=== PATIENT | female | born 1990 | race Caucasian/White ===

== ENCOUNTER 2018-09-17 11:26 | Day surgery (SDC) | payer OTHER ==
[~2018-09-17] VITALS: Ht 160 cm; Wt 86.7 kg
[2018-09-17 12:10] VITALS: Ht 160 cm; Wt 86.7 kg
--- NOTE | 2018-09-17 12:19 | PREAC ---
Date/Time of Note Date/Time of Note DATE: 09/17/18 TIME: 12:18 Anesthesia Eval and Record Evaluation Time Pre-Procedure Interview DATE: 09/17/18 TIME: 12:18 Age 28 Sex female NPO: 8 hrs Preoperative diagnosis ABDOMINAL PAIN, GERD Planned procedure EGD Past Medical History Past Medical History: Includes Pulm: Asthma GI: GERD, Obesity Surgery & Anesthesia Issues No known issue Meds Anticoagulation: No Beta Francine within 24 hr: No Reason Beta Francine not given: Pt. not on B-Francine Meds reviewed: Yes Allergies Coded Allergies: cefazolin (Verified Allergy, Severe, ANAPHYLAXIS, 09/17/18) ciprofloxacin (Verified Allergy, Severe, ANAPHYLAXIS, 09/17/18) levofloxacin (Verified Allergy, Severe, ANAPHYLAXIS, 09/17/18) moxifloxacin (Verified Allergy, Severe, ANAPHYLAXIS, 09/17/18) Allergies Reviewed: Yes Labs/Studies Labs Reviewed: Reviewed by anesthesiologist test: Negative Pre-procedure Exam Airway: Adequate mouth opening, Adequate thyromental dist Mallampati: Mallampati II Teeth: Normal Lung: Normal Heart: Normal ASA Physical Status ASA physical status: 2 Emergency: None Planned Anesthetic General/MAC: MAC Planned Pain Management Parenteral pain med Pre-operative Attestations Prior to commencing anesthesia and surgery, the patient was re-evaluated, there was verification of: *The patient's identity *The results of appropriate recent lab work and preoperative vital signs *The above evaluation not changing prior to induction *Anesthetic plan, risk benefits, alternative and complications discussed with patient/family; questions answered; patient/family understands, accepts and wishes to proceed. PRITI VERAS Sep 17, 2018 12:19
[2018-09-17] MEDS ORDERED: LIDOCAINE 2% (SDV) 5 ML INJ ONE (12:21)
[2018-09-17] MEDS ORDERED: PROPOFOL 40 ML ONE (12:21)
[2018-09-17] MEDS ORDERED: hydrALAzine 20 MG INJ IV PRN (12:30)
[2018-09-17] MEDS ORDERED: EPHEDrine SULFATE 50 MG/5 ML SYG IV PRN (12:30)
[2018-09-17] MEDS ORDERED: METOCLOPRAMIDE 10 MG INJ IV PRN (12:30)
[2018-09-17] MEDS ORDERED: LABETALOL HCL 20MG INJ IV PRN (12:30)
[2018-09-17] MEDS ORDERED: ONDANSETRON 4 MG INJ IV PRN (12:30)
[2018-09-17] MEDS ORDERED: FENTAnyl 50 MCG/ML VIAL IV PRN (12:30)
[2018-09-17] MEDS ORDERED: ZYRTEC (12:35)
[2018-09-17] MEDS ORDERED: BIRTH CONTROL (12:35)
[2018-09-17] MEDS ORDERED: ARNUITY (12:35)
[2018-09-17] MEDS ORDERED: FISH OIL (12:35)
[2018-09-17] MEDS ORDERED: PROBIOTICS (12:35)
[2018-09-17 12:36] VITALS: BP 109/65; PULSE 88; RESP 16
--- NOTE | 2018-09-17 13:32 | PAC ---
Date/Time of Note Date/Time of Note DATE: 09/17/18 TIME: 13:32 Post-Anesthesia Notes Post-Anesthesia Note Last documented vital signs Vital Signs Date Temp Pulse Resp B/P (MAP) Pulse Ox O2 O2 Flow FiO2 Time Delivery Rate 09/17/18 98.0 88 16 109/65 99 Room Air 1332 (80) Activity: WNL Respiratory function: WNL Cardiovascular function: WNL Mental status: Baseline Pain reasonably controlled: Yes Hydration appropriate: Yes Nausea/Vomiting absent: Yes PRITI VERAS Sep 17, 2018 13:32
[2018-09-17 13:55] VITALS: BP 133/76; RESP 15
== END 2018-09-17 15:44 | disposition home or self-care (01) ==
LOC: GIL 11:26
PROVIDERS: ATTEND Internal Medicine Gastroenterology
DX: K21.9 Gastro-esophageal reflux disease without esophagitis (principal); K29.60 Other gastritis without bleeding
CPT/HCPCS: 43239; 84703; 88305; Z7610